=== PATIENT | male | born 1995 | race Caucasian/White ===

== ENCOUNTER 2024-08-21 16:43 | Emergency (ER) | payer MEDICAID ==
[~2024-08-21] VITALS: Ht 180.3 cm; Wt 98.9 kg
[2024-08-21 16:49] VITALS: BP 153/78; PULSE 90; RESP 18; TEMP 97.6; O2SAT 98
[2024-08-21] MEDS: ondansetron 4mg rapidly disintigrating tab PO ONE (18:15)
[2024-08-21] MEDS ORDERED: ONDA-243 PO (19:01)
== END 2024-08-21 19:42 | disposition home or self-care (01) ==
LOC: ER 16:45
DX: R11.2 Nausea with vomiting, unspecified (principal)
CPT/HCPCS: 99283

== ENCOUNTER 2024-09-18 08:56 | Emergency (ER) | payer MEDICAID ==
[~2024-09-18] VITALS: Ht 180.3 cm; Wt 96.2 kg
[~2024-09-18 08:56] MED LIST: ONDA-243 PO
[2024-09-18 09:01] VITALS: BP 117/74; PULSE 87; TEMP 97.2; O2SAT 97
[2024-09-18 10:36] VITALS: RESP 16
[2024-09-18] MEDS: ketorolac trometh 30MG/ML vial 30 MG/ML VIAL IM ONE (10:36)
[2024-09-18] MEDS: dexamethasone sod phosphate 10mg/ml inj IM STA (10:40)
[2024-09-18] MEDS ORDERED: HYDROcodone/acetaminophen 5mg/325mg tablet PO ONE (11:30)
[2024-09-18] MEDS ORDERED: HYDR-3965 PO (11:38)
== END 2024-09-18 11:56 | disposition home or self-care (01) ==
LOC: ER 08:57
DX: M25.461 Effusion, right knee (principal)
CPT/HCPCS: 73562; 96372; 99284; J1100; J1885

== ENCOUNTER 2025-02-06 16:11 | Emergency (ER) | payer MEDICAID, OTHER ==
[~2025-02-06] VITALS: Ht 180.3 cm; Wt 90.9 kg
[2025-02-06 16:28] VITALS: TEMP 98.3
--- NOTE | 2025-02-06 16:40 | ELECTROCARDIOGRAPH REPORT ---
[facility] Test Date: 2025-02-06 Test Time: 16:37:26 Pat Name: SHON MART Department: [facility]- Patient ID: [facility]-[id number] Room: Gender: M Clinical Trial Coordinator: : 1995 Requested By: PRANAV DILLON Order Number: [id number] Reading MD: Measurements Intervals [place] Rate: 143 P: 57 [place]: 116 QRS: 58 QRSD: 87 T: 26 QT: 288 QTc: 444 Interpretive Statements Sinus tachycardia Please click the below link to view image of tracing.
[2025-02-06 16:55] LABS: MEAN PLATELET VOLUME 8.5 FL (7.4-10.4); RED CELL DISTRIBUTION WIDTH 17.5 % (11.5-14.5)
[2025-02-06 17:25] LABS: CREATININE 1.80 MG/DL (0.60-1.10); TOTAL CARBON DIOXIDE 23.8 MMOL/L (24-32); eCRCL 63 ML/MIN; eGFR 44 ML/MIN
--- NOTE | 2025-02-06 17:37 | Physician Documentation ---
History of Present Illness General Chief Complaint: See Chief Complaint Stated Complaint: CRAMPS Time Seen by MD: 18:01 Primary Medical Doctor: NONE History of Present Illness Initial Comments This 30-year-old male presents with generalized body aches and cramping falling taking a workout and going for a 6 mi run. History as above. Patient states that this type of work out it is not unusual for him but he did take for hydroxy cuts tablets instead of his usual two. He also has had some recent travel. Complains of whole-body aches and nausea. Medication Reconciliation Allergies: Coded Allergies: No Known Allergies (Unverified , 09/18/24) Scheduled PRN ONDANSETRON ODT 4mg tablet (Ondansetron Odt), 1 TAB PO Q6H PRN PRN for nausea/vomiting Past Medical History Past Medical History: No Pertinent History Review of Systems ROS As stated above in the HPI, otherwise all systems are reviewed and negative. Physical Exam Physical Exam Vital Signs: Temperature: 98.3, Source: Temporal, Heart Rate: 126, Respiratory Rate: 16, BP: 125/92, Pulse Oximetry: 98, Weight: 90.910 Oxygen Flow Rate: 0 Physical Exam General: Patient is awake, alert, oriented x4 in no acute distress. Noted rigors Head: Normocephalic and atraumatic. Eyes: Conjunctival normal. EOMI. PERRL. ENT: Mucous membranes moist. Neck: Supple, trachea is midline. Chest: Clear to auscultation bilaterally without rales, rhonchi, or wheezes. There is no accessory muscle use or retractions. Cardiac: Tachycardic and regular without murmurs, gallops, or rubs. Abd: Soft, nondistended, nontender, with normoactive bowel sounds. No guarding, rebound, or rigidity. Progress Results/Orders Results/Orders Orders - JORDAN HEMPHILL MD Covid19 Binax Poc Result Entry (02/06/25 18:07) Completed Orders - JORDAN HEMPHILL MD Normal Saline 1000ml (0.9% Sodium Chlori (02/06/25 18:10) Cyclobenzaprine Tablet (Flexeril Tablet) (02/06/25 18:10) Acetaminophen 1,000mg/100ml Iv (Ofirmev (02/06/25 18:10) Ondansetron Inj. (Zofran 4mg/2ml Vial) (02/06/25 18:40) Medications Received in ER Medications (Trade) Dose Ordered Sig/Huey Route PRN Reason Start Time Stop Time Status Last Admin Dose Admin Sodium Chloride 1,000 ml @ 1,000 mls/hr ONCE ONCE IV 02/06/25 18:10 02/06/25 19:09 DC 02/06/25 18:32 1,000 MLS/HR (Flexeril tablet) 10 mg ONCE ONCE PO 02/06/25 18:10 02/06/25 18:11 DC 02/06/25 18:32 10 MG Acetaminophen 100 ml @ 400 mls/hr ONCE ONCE IV 02/06/25 18:10 02/06/25 18:24 DC 02/06/25 18:31 400 MLS/HR (Zofran 4mg/2ml vial) 4 mg ONCE ONCE IV 02/06/25 18:40 02/06/25 18:41 DC 02/06/25 18:51 4 MG Vital Signs 02/06/25 02/06/25 16:28 18:01 Temp 98.3 Pulse 126 115 Resp 16 22 B/P (MAP) 125/92 120/87 (98) Pulse Ox 98 97 O2 Flow Rate 0 0 Laboratory Tests Test 02/06/25 16:48 02/06/25 18:33 White Blood Count 11.1 H Red Blood Count 5.21 Hemoglobin 13.4 L Hematocrit 40.8 L Mean Corpuscular Volume 78.4 Mean Corpuscular Hemoglobin 25.7 L Mean Corpuscular Hemoglobin Concent 32.7 L Red Cell Distribution Width 17.5 H Platelet Count 379 Mean Platelet Volume 8.5 Neutrophils (%) (Auto) 72.4 Lymphocytes (%) (Auto) 18.4 L Monocytes (%) (Auto) 8.1 Eosinophils (%) (Auto) 0.2 Basophils (%) (Auto) 0.9 Neutrophils # (Auto) 8.0 H Lymphocytes # (Auto) 2.0 Monocytes # (Auto) 0.9 Eosinophils # (Auto) 0.0 Basophils # (Auto) 0.1 CBC Comment Sodium Level 139 Potassium Level 4.0 Chloride Level 102 Carbon Dioxide Level 23.8 L Anion Gap 13 Blood Urea Nitrogen 21 H Creatinine 1.80 H Estimated GFR/1.73 m2 44 BUN/Creatinine Ratio 11.7 Glucose Level 105 H Calcium Level 9.8 Total Bilirubin 0.8 Aspartate Amino Transf (AST/SGOT) 24 Alanine Aminotransferase (ALT/SGPT) 30 Alkaline Phosphatase 88 Total Creatine Kinase 138 Total Protein 8.7 H Albumin 4.9 Globulin 3.8 Albumin/Globulin Ratio 1.3 Chemistry Comments SARS-CoV-2 Antigen (Rapid) Negative Medical Decision Making Findings Upon re-evaluation patient is feeling much better in rigors have ceased. Patient presented to the emergency room with generalized body aches, chills and nausea. Differentials include but are not limited to heat exhaustion, viral syndrome, dehydration, electrolyte disturbances therefore emergent labs ordered which were reassuring. Mild dehydration. Patient has received IV fluids and antipyretics in his responding to therapy. Given his generalized symptoms that has concern for possible viral illness therefore COVID was ordered which was negative. I still feel that patient is suffering likely viral infection. No dysuria and he had not feel he requires a urinalysis. The need to stay hydrated discussed. I also discussed patient's renal function which is less than I would expect for a 30-year-old male. I have instructed him that he needs to follow up with his primary care regarding this and just stay hydrated in the meantime and to avoid NSAIDs when possible. Departure Disposition: 01 HOME / SELF CARE / HOMELESS Impression: Primary Impression: Viral illness Condition: Improved Discharge Instructions: Viral Illness, Adult Additional Instructions: Follow up with your doctor regarding your kidney function. Drink plenty of water. Referrals: NO PRIMARY CARE PROVIDER (PCP) Prescriptions Ondansetron 8mg ODT (Ondansetron Odt) 8 Mg Tab.rapdis 1 TAB PO Q6H for nausea/vomiting for 3 Days, #12 TAB 0 Refills Prov: JORDAN HEMPHILL MD 02/06/25 Education Educated: Patient Educated regarding: diagnosis, treatment, need for follow up Signature Scribe Signature: No scribe Attestation: The note accurately reflects work and decisions made by me.Jordan Hemphill MD 02/06/25 19:27 PRANAV DILLON Feb 06, 2025 17:37 JORDAN HEMPHILL MD Feb 06, 2025 18:39
[2025-02-06] MEDS: acetaminophen 1,000mg/100ml IV 100 ML IV ONE (18:31)
[2025-02-06] MEDS: normal saline 1000ml 1,000 ML IV ONE (18:32)
[2025-02-06] MEDS: ondansetron/PF 4mg/2ml inj IV ONE (18:51)
[2025-02-06] MEDS ORDERED: ONDA-245 PO (19:27)
[2025-02-06 19:40] VITALS: BP 130/71; PULSE 85; O2SAT 98
[2025-02-06 19:50] VITALS: RESP 18
== END 2025-02-06 19:53 | disposition home or self-care (01) ==
LOC: ER 16:11
DX: B34.9 Viral infection, unspecified (principal); R11.0 Nausea; M79.18 Myalgia, other site; R07.9 Chest pain, unspecified; Z20.822 Contact with and (suspected) exposure to COVID-19
CPT/HCPCS: 36415; 80053; 82550; 85025; 87811; 93005; 96365; 96375; 99284; J0131; J2405; J7030